=== PATIENT | male | born 1985 | race Two or more races ===

== ENCOUNTER 2018-02-07 07:14 | Emergency (ER) | payer SELFPAY ==
[~2018-02-07] VITALS: Ht 175.3 cm; Wt 109.0 kg
[2018-02-07] MEDS ORDERED: ONDANSETRON ODT 4 MG PO ONE (08:00)
[2018-02-07] MEDS ORDERED: HYDROmorphone 1 MG/ML, 1ML IM ONE (08:00)
[2018-02-07] MEDS ORDERED: ONDANSETRON ODT 4 MG ONE (08:03)
[2018-02-07] MEDS ORDERED: HYDROmorphone 1 MG/ML, 1ML ONE (08:03)
[2018-02-07 08:19] LABS: BASOPHILS # (AUTO) 0.05 x10^3/uL (0-0.1); BASOPHILS % (AUTO) 1 % (0-1); EOSINOPHILS # (AUTO) 0.12 x10^3/uL (0-0.4); EOSINOPHILS % (AUTO) 1 % (1-7); LYMPHOCYTES # (AUTO) 1.68 x10^3/uL (1-3.4); LYMPHOCYTES % (AUTO) 17 % (22-44); MONOCYTES % (AUTO) 8 % (2-9); NEUTROPHILS # (AUTO) 7.56 x10^3/uL (1.8-6.8); NEUTROPHILS % (AUTO) 74 % (42-75)
[2018-02-07 08:20] LABS: MD NO; MEAN CORPUSCULAR HEMOGLOBIN 28.7 pg (27.5-34.5); MEAN CORPUSCULAR HGB CONC 33.8 g/dL (33.2-36.2); MEAN PLATELET VOLUME 10.5 fL (7.4-10.4); PLATELET COUNT 166 x10^3/uL (130-400); RED CELL DISTRIBUTION WIDTH 14.6 % (9.4-14.8)
[2018-02-07 08:22] LABS: ALBUMIN 3.4 g/dL (3.4-5.0); ANION GAP 7 mmol/L (5-15); CHLORIDE 104 mmol/L (98-107); CREATININE 2.16 mg/dL (0.7-1.3)
[2018-02-07 09:56] VITALS: BP 182/110
[2018-02-07] MEDS ORDERED: CARV-39 PO (10:01)
[2018-02-07] MEDS ORDERED: AMLO10TA2 PO (10:01)
[2018-02-07] MEDS ORDERED: LOSA1TAB22 PO (10:01)
== END 2018-02-07 09:58 | disposition home or self-care (01) ==
LOC: ED 07:58
DX: M25.561 Pain in right knee (principal); M13.0 Polyarthritis, unspecified; M10.9 Gout, unspecified; I12.9 Hypertensive chronic kidney disease with stage 1 through stage 4 chronic kidney disease, or unspecified chronic kidney disease; N18.3 Chronic kidney disease, stage 3 (moderate)
CPT/HCPCS: 36415; 80048; 82040; 84550; 85025; 96372; 99284; J1170; Q0162